=== PATIENT | female | born 1940 | race Caucasian/White ===

== ENCOUNTER 2016-07-15 11:49 | Emergency (ER) | payer OTHER, MEDICARE ==
[~2016-07-15] VITALS: Ht 160 cm; Wt 63.5 kg
--- NOTE | 2016-07-15 12:31 | ED GENERAL ADULT ---
History of Present Illness General Chief Complaint: General Adult Stated Complaint: SENT BY MD FOR NAUSEA,GAGGING,SICKNESS X FEW WKS Source: patient, family Exam Limitations: no limitations Vital Signs & Intake/Output Vital Signs & Intake/Output Vital Signs Date Time Temp Pulse Resp B/P B/P Pulse O2 O2 Flow FiO2 Mean Ox Delivery Rate 07/15 1403 99.5 72 18 129/61 96 Room Air 07/15 1330 Room Air 07/15 1153 97.8 69 16 102/60 98 Room Air Allergies Uncoded Allergies: NARCOTICS (Severe, N/V 07/15/16) Reconcile Medications Atorvastatin Calcium 20 MG TABLET 1 TAB PO DAILY CHOLESTEROL (Reported) Cetirizine HCl (Zyrtec) 10 MG TABLET 1 TAB PO DAILY ALLERGIES (Reported) Cholecalciferol (Vitamin D3) 1,000 UNIT TABLET 1 TAB PO DAILY VITAMIN SUPPORT (Reported) Dexlansoprazole (Dexilant) 60 MG CAP.BP 1 CAP PO DAILY GI (Reported) Montelukast Sodium 10 MG TABLET 1 TAB PO DAILY ALLERGIES (Reported) Nifedipine (Nifedipine ER) 60 MG TAB.ER.24 1 TAB PO DAILY HEART (Reported) Ondansetron HCl (Zofran) 4 MG TABLET 1 TAB PO Q6-8P PRN NAUSEA Tramadol HCl 50 MG TABLET 1 TAB PO BIDP PRN PAIN (Reported) Valsartan/Hydrochlorothiazide (Valsartan-Hctz 160-25 MG Tab) 160 MG-25 MG TABLET 1 TAB PO DAILY HEART (Reported) Triage Note: 75 MONTH HX "GAGGING, DRY HEAVING AND NOT BEING ABLE TO EAT". PT STATES SHE CANNOT TOLERATE PO INTAKE, GOING TO BATHROOM MORE THAN USUAL, FEELS "FEVERISH, HOT AND COLD". RECENTLY HAD THYROID TESTS DRAWN DUE TO HAIR LOSS BUT DOESNT HAVE RESULTS YET. DENIES URINARY SYMPTOMS. DENIES ABDOMINAL PAIN. FAMILY COMMENTS PT APPEARS TO HAVE LOST WEIGHT Triage Nurses Notes Reviewed? 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 MATIAS Blanchard, hypertension, seasonal allergies, cervical full spine fusion surgery was remote, having hyperlipidemia and which patient presents to emergency room with concerns stating that for the past year she's been complaining of intermittent dry heaving and nausea sensations where her last endoscopy was approximately 2 years ago however in the last 3 weeks her nausea has significantly worsened. Patient was initially complaining of a postnasal drip that worsened her retching dry heaving sensation where she was evaluated last week by an workers compensation examiner and was prescribed prednisone with significant improvement of her symptoms. Patient states that when the prednisone was complete symptoms then again worsened or patient this week has had worsening retching and dry heaving sensation with intermittent episodes of nonbloody nonbilious emesis. Patient states that sometimes she eats with no change in symptoms and sometimes she complains of a 30 minute acute onset of retching dry heaves after eating. Patient does state that the nausea and dry heaves occur paroxysmally Patient does NSAIDs for her chronic neck pain Last bowel movement was today 3 episodes of brown stool no blood no melena noted Patient does state that in the past week she's had decreased by mouth intake and concern for weight loss and loss of hair where she had outpatient thyroid studies with unknown results at this time Patient is positive for tactile fevers and chills and headaches. Denies any sore throat difficulty swallowing shortness of breath cough chest pain arm pain jaw pain. Patient does have mild generalized abdominal discomfort (CHEIKH EDWARDS) Past History Travel History Traveled to [place] past 21 day No Medical History Any Pertinent Medical History? see below for history Neurological: NONE EENT: NONE Cardiovascular: hypertension Respiratory: NONE Gastrointestinal: GERD, BARRETTS ESOPHAGUS Hepatic: NONE Renal: NONE Musculoskeletal: NONE Psychiatric: NONE Endocrine: NONE Blood Disorders: NONE Cancer(s): NONE GIFT PACKER/Reproductive: NONE Surgical History Surgical History: appendectomy, hysterectomy, spinal fusion Psychosocial History What is your primary language Divehi Tobacco Use: Never used Family History Hx Contributory? No (CHEIKH EDWARDS) Review of Systems Review of Systems Constitutional: Reports: see HPI, chills, malaise, weakness. EENTM: Reports: no symptoms. Respiratory: Reports: see HPI. Cardiovascular: Reports: see HPI. GI: Reports: see HPI, abdominal pain, nausea. Genitourinary: Reports: no symptoms. Musculoskeletal: Reports: see HPI. Skin: Reports: no symptoms. Neurological/Psychological: Reports: no symptoms. Hematologic/Endocrine: Reports: no symptoms. Immunologic/Allergic: Reports: no symptoms. All Other Systems: Reviewed and Negative (CHEIKH EDWARDS) Physical Exam Physical Exam General Appearance: no apparent distress, alert, comfortable Gastrointestinal: normal bowel sounds, soft, BOWEL SOUNDS 4 gENERALIZED POINT TENDERNESS NOTED Comments: Well-developed well-nourished person in no acute distress HEENT: Normal EENT exam, extraocular motion intact, no nystagmus. Pupils equally round and reactive to light and accommodation. Nose is atraumatic. External auditory canal and Tympanic membranes clear. Pharynx normal. No swelling or edema. Neck: Supple, no lymphadenopathy, normal range of motion without pain or tenderness Back: Nontender, no CVA tenderness. Cardiovascular: Regular rate and rhythms no murmurs rubs or gallops, normal JVP Respiratory: Chest nontender. No respiratory distress.breath sounds clear to auscultation bilaterally Extremity: No edema, no calf tenderness to palpation, normal and equal pulses. Neuro: Alert oriented x3, motor sensory normal, Skin: No appreciable rash on exposed skin, skin is warm and dry. Psych: Mood and affect is normal, memory and judgment is normal. Core Measures ACS in differential dx? Yes CVA/TIA Diagnosis: No Severe Sepsis Present: No Septic Shock Present: No (NYA CONLEY,CHEIKH) Progress Differential Diagnoses I considered the following diagnoses in my evaluation of the patient: [ Pancreatitis, gastroenteritis, cancer, thyroid disease, cholecystitis, Asya- Mena tear, GERD, hiatal hernia,SBO Chamberlain's esophagus, cardial infarction, pulmonary embolism, AAA, aortic dissection] Diagnostic Imaging: Viewed by Me: CT Scan. Radiology Impression: SEE COMMENTS Initial ED EKG: MULTIPLE ARTIFACT NOTED, 68 BPM, NSR Comments: PATIENT: TIRSO ONTIVEROS PRESENT AGE: 75 PATIENT ACCOUNT NO: [id number] : 41 LOCATION: [facility] ORDERING PHYSICIAN: CHEIKH CONLEY SERVICE DATE: 07/15/16 EXAM TYPE: CAT - CT ABD & PELVIS W IV CONTRAST EXAMINATION: CT ABDOMEN AND PELVIS WITHOUT CONTRAST CLINICAL INFORMATION: Abdominal pain, nausea. COMPARISON: None. TECHNIQUE: Contiguous axial thin section helical images of the abdomen and pelvis were performed without oral or IV contrast. The data set was reformatted in the coronal and sagittal planes and reviewed on an independent workstation. DLP: 257 mGy-cm. FINDINGS: The visualized lung bases are clear. The visualized portions of the heart are unremarkable. There is a moderate-sized hiatal hernia. The liver is of normal size and attenuation without concerning focal lesions nor intrahepatic biliary ductal dilation. Several low-attenuation lesions are present within the liver. These are too small to fully characterize and likely represent cysts. Within the inferior aspect of the liver right lobe is an approximately 1.9 cm cyst. There is layering high attenuation bile within the gallbladder lumen. There is no cholelithiasis. There is no wall thickening or discernible pericholecystic fluid. The spleen, pancreas, adrenal glands are unremarkable. Both kidneys are of normal size and attenuation without hydronephrosis or nephrolithiasis. There is no abdominal free fluid. There is neither mesenteric nor retroperitoneal lymphadenopathy. Normal unopacified loops of small and large bowel are identified. There is no pelvic free fluid. The urinary bladder is unremarkable. There is neither pelvic nor inguinal lymphadenopathy. Bone windows: Neither sclerotic nor lytic bone lesions are identified. Moderate degenerative changes present within the lumbar spine. There are severe S-shaped thoracolumbar scoliosis. IMPRESSION: No evidence for acute abdominal or pelvic inflammatory or infectious processes. Moderate hiatal hernia. High attenuation bile within the gallbladder lumen without cholelithiasis or cholecystitis. Scoliosis. (NYA CONLEY,CHEIKH) Plan of Care: Orders Procedure Date/time Status Add-on Test (ER Only) 07/15 1303 Active EKG 07/15 1303 Active TROPONIN LEVEL 07/15 1254 Complete THYROID STIMULATING HORMONE 07/15 1245 Complete LIPASE 07/15 1245 Complete FREE T4 07/15 1245 Complete DIRECT BILIRUBIN 07/15 1245 Complete COMPREHENSIVE METABOLIC PANEL 07/15 1245 Complete CBC WITHOUT DIFFERENTIAL 07/15 1245 Complete AMYLASE 07/15 1245 Complete Laboratory Tests 07/15/16 1254: Anion Gap 15, Estimated GFR 40 L, BUN/Creatinine Ratio 20.8, Glucose 110 H, Calcium 9.7, Total Bilirubin 0.9, Direct Bilirubin 0.2, AST 17, ALT 31, Alkaline Phosphatase 77, Troponin I < 0.01, Total Protein 7.1, Albumin 4.4, Globulin 2.7, Albumin/Globulin Ratio 1.6, Amylase 42, Lipase 62, TSH 1.350, Free T4 1.40, CBC w Diff NO MAN DIFF REQ, RBC 4.46, MCV 87.3, MCH 29.5, RDW 13.2, MPV 8.9, Gran % 73.4, Lymphocytes % 13.8 L, Monocytes % 12.3 H, Eosinophils % 0.2, Basophils % 0.3, Absolute Granulocytes 4.4, Absolute Lymphocytes 0.8 L, Absolute Monocytes 0.7 H, Absolute Eosinophils 0, Absolute Basophils 0, PUBS MCHC 33.8 Patient currently resting comfortably at bedside. Patient declines pain medications when offered. Patient was given Zofran and IV fluids and felt significantly improved. Blood work was established showing unremarkable findings CT scan was unremarkable except for moderate hiatal hernia which could result in patient's symptoms however I strongly advised patient to follow up with predatory animal hunter in which she was given copies of all blood work and scan in the emergency room and to establish surgeon Brandon Ann MD for concerns of hiatal hernia. Upon discharge patient looks well no apparent distress. Discussed disposition plan with Dr. Guerrero who agrees (CHEIKH EDWARDS) Departure Departure Disposition: HOME OR SELF CARE Condition: Stable Clinical Impression Primary Impression: Abdominal pain Secondary Impressions: Hiatal hernia, Nausea Referrals: ISRAEL DUKE,NIKITA Li (PCP/Family) KRZYSZTOF DUKE,BRANDON Sánchez Additional Instructions: As discussed begin the prescription of Zofran for future nausea. Begin a diet regimen of soft liquids. If symptoms worsen return to emergency room. Next week follow up and establish surgeon Brandon Ann MD for further evaluation treatment. On Monday follow-up with your establish a predatory animal hunter in provide them with the blood work and CT scan findings from the emergency room. Prescription is waiting at [facility]. Departure Forms: Customer Survey General Discharge Information Prescriptions: Current Visit Scripts Ondansetron HCl (Zofran) 1 TAB PO Q6-8P PRN NAUSEA #15 TAB (CHEIKH EDWARDS) PA/PRODUCTION REPAIRER Co-Sign Statement Statement: ED Attending supervision documentation- [X] I saw and evaluated the patient. I have also reviewed all the pertinent lab results and diagnostic results. I agree with the findings and the plan of care as documented in the PA's/PRODUCTION REPAIRER's documentation. [] I have reviewed the ED Record and agree with the PA's/PRODUCTION REPAIRER's documentation. [] Additions or exceptions (if any) to the PAs/PRODUCTION REPAIRER's note and plan are summarized below: [] (SEAN DUKE,CYNDY Guerra) Critical Care Note Critical Care Note Critical Care Time: non-applicable (CHEIKH EDWARDS)
[2016-07-15 13:20] LABS: ABSOLUTE BASOPHIL COUNT 0 /CUMM (0.0-0.2); ABSOLUTE EOSINOPHIL COUNT 0 /CUMM (0.0-0.7); ABSOLUTE GRANULOCYTE CT 4.4 /CUMM (1.4-6.5); ABSOLUTE LYMPH COUNT 0.8 /CUMM (1.2-3.4); ABSOLUTE MONOCYTE COUNT 0.7 /CUMM (0.10-0.60); BASOPHIL % 0.3 % (0.0-2.0); EOSINOPHIL % 0.2 % (0-5); GRANULOCYTE % 73.4 % (42.2-75.2); MEAN CORPUSCULAR HGB 29.5 PG (27.0-31.0); MEAN CORPUSCULAR HGB CONC 33.8 G/DL (33.0-37.0); MEAN CORPUSCULAR VOLUME 87.3 FL (81.0-99.0); MEAN PLATELET VOLUME 8.9 FL (7.4-10.4); PLATELET COUNT 157 /CUMM (130-400); RBC DISTRIBUTION WIDTH 13.2 % (11.5-14.5); RED BLOOD CELL CT 4.46 /CUMM (4.20-5.40)
--- NOTE | 2016-07-15 14:27 | CT SCAN REPORT ---
EXAMINATION: CT ABDOMEN AND PELVIS WITHOUT CONTRAST CLINICAL INFORMATION: Abdominal pain, nausea. COMPARISON: None. TECHNIQUE: Contiguous axial thin section helical images of the abdomen and pelvis were performed without oral or IV contrast. The data set was reformatted in the coronal and sagittal planes and reviewed on an independent workstation. DLP: 257 mGy-cm. FINDINGS: The visualized lung bases are clear. The visualized portions of the heart are unremarkable. There is a moderate-sized hiatal hernia. The liver is of normal size and attenuation without concerning focal lesions nor intrahepatic biliary ductal dilation. Several low-attenuation lesions are present within the liver. These are too small to fully characterize and likely represent cysts. Within the inferior aspect of the liver right lobe is an approximately 1.9 cm cyst. There is layering high attenuation bile within the gallbladder lumen. There is no cholelithiasis. There is no wall thickening or discernible pericholecystic fluid. The spleen, pancreas, adrenal glands are unremarkable. Both kidneys are of normal size and attenuation without hydronephrosis or nephrolithiasis. There is no abdominal free fluid. There is neither mesenteric nor retroperitoneal lymphadenopathy. Normal unopacified loops of small and large bowel are identified. There is no pelvic free fluid. The urinary bladder is unremarkable. There is neither pelvic nor inguinal lymphadenopathy. Bone windows: Neither sclerotic nor lytic bone lesions are identified. Moderate degenerative changes present within the lumbar spine. There are severe S-shaped thoracolumbar scoliosis. IMPRESSION: No evidence for acute abdominal or pelvic inflammatory or infectious processes. Moderate hiatal hernia. High attenuation bile within the gallbladder lumen without cholelithiasis or cholecystitis. Scoliosis.
[2016-07-15] MEDS ORDERED: MONTELUKAST SOD10 M1 PO (14:28)
[2016-07-15] MEDS ORDERED: TRAMADOL HCL50 M1 PO (14:29)
[2016-07-15] MEDS ORDERED: DEXILANT60 M1 PO (14:29)
[2016-07-15] MEDS ORDERED: VITAMIN D31000 UNI2 PO (14:29)
[2016-07-15] MEDS ORDERED: NIFEDIPINE ER60 M2 PO (14:29)
[2016-07-15] MEDS ORDERED: VALSARTAN-HCTZ1 EAC2 PO (14:29)
[2016-07-15] MEDS ORDERED: ATORVASTATIN CA20 M1 PO (14:30)
[2016-07-15] MEDS ORDERED: ZYRTEC10 M3 PO (14:31)
[2016-07-15] MEDS ORDERED: ZOFRAN4 M2 PO (14:51)
[2016-07-15 15:38] VITALS: BP 121/58
== END 2016-07-15 15:44 ==
LOC: ERH 11:49
PROVIDERS: Physician Assistant
DX: K44.9 Diaphragmatic hernia without obstruction or gangrene (principal); E78.5 Hyperlipidemia, unspecified; I10 Essential (primary) hypertension
CPT/HCPCS: 74177; 93005; 93010; 96361; 96374; J2405